=== PATIENT | female | born 1980 | race Caucasian/White ===

== ENCOUNTER 2021-12-09 15:08 | Outpatient (RCR) | payer OTHER ==
[~2021-12-09 15:08] MED LIST: LORTAB 5/500 501 TAB PO; NO HOME MEDICATIONS
== END 2021-12-22 | disposition home or self-care (01) ==
LOC: WSOH
DX: S61.201A Unspecified open wound of left index finger without damage to nail, initial encounter (principal); W55.01XA Bitten by cat, initial encounter; Y99.0 Civilian activity done for income or pay

== ENCOUNTER → 2023-02-02 | Outpatient (CLI) | payer BC | LOC: MC.RAD 15:37 | DX: Z12.31 Encounter for screening mammogram for malignant neoplasm of breast (principal); N63.10 Unspecified lump in the right breast, unspecified quadrant; N63.20 Unspecified lump in the left breast, unspecified quadrant ==